=== PATIENT | female | born 1930 | race Caucasian/White ===

== ENCOUNTER 2018-04-20 14:11 | Emergency (ER) | payer MEDICARE ==
--- NOTE | 2018-04-20 14:24 | Emergency Department Report ---
Blank Doc - Documentation Documentation: This is a 88-year-old female that presents with popping sensation of jaw. Mecca callaway stated that patient yawned and felt a pop and now has a jaw deformity. This initial assessment/diagnostic orders/clinical plan/treatment(s) is/are subject to change based on patient's health status, clinical progression and re- assessment by fellow clinical providers in the ED. Further treatment and workup at subsequent clinical providers discretion. Patient/guardians urged not to elope from the ED as their condition may be serious if not clinically assessed and managed. Initial orders include: 1- Patient sent to [facility] for further evaluation and treatment
--- NOTE | 2018-04-20 14:56 | Cat Scan Report ---
CT scan of mandible: History: Mandibular pain and deformity. Findings: No fracture is identified. The right mandibular condyle is anteriorly dislocated. The left mandibular condyle is in normal position in temporomandibular joint. There is mucosal thickening noted in the right maxillary sinus. There is suspicion of a retention cyst. Impression: Anteriorly dislocated right mandibular condyle.
[2018-04-20] MEDS ORDERED: XYLOCAINE 1% 20 mL INFILTRATI ONE (15:22)
[2018-04-20] MEDS ORDERED: ATIVAN IV ONE ×2 (15:50→15:51)
[2018-04-20] MEDS ORDERED: DIPRIVAN 10 MG/ML IV ONE ×2 (17:36→18:04)
--- NOTE | 2018-04-20 17:47 | Emergency Department Report ---
ED General Adult HPI - General Chief complaint: Dental/Oral Stated complaint: JAW INJURY Time Seen by Provider: 04/20/18 14:22 Source: family Mode of arrival: Wheelchair Limitations: Language Barrier - History of Present Illness Initial comments: Patient presents to the emergency department with her family member for dislocation of her right jaw. 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 This happened 3 days ago and felt today was a perfect time to present to the emergency department. They deny injury. Location: mouth Severity scale (0 -10): 0 Consistency: constant Improves with: none Worsens with: none Associated Symptoms: denies other symptoms Treatments Prior to Arrival: none - Related Data Home Medications Medication Instructions Recorded Confirmed Last Taken Acarbose [Precose] 50 mg PO TID 05/01/15 05/01/15 1 Day Ago ~04/30/15 Fenofibrate [Tricor] 48 mg PO QDAY 05/01/15 05/01/15 1 Day Ago ~04/30/15 Ferrous Sulfate [Feosol] 325 mg PO QDAY 05/01/15 05/01/15 1 Day Ago ~04/30/15 Gabapentin [Neurontin] 100 mg PO Q8HR 05/01/15 05/01/15 1 Day Ago ~04/30/15 Lisinopril [Zestril TAB] 10 mg PO QDAY 05/01/15 05/01/15 1 Day Ago ~04/30/15 Meloxicam 15 mg PO QDAY 05/01/15 05/01/15 1 Day Ago ~04/30/15 amLODIPine [Norvasc] 5 mg PO DAILY 05/01/15 05/01/15 1 Day Ago ~04/30/15 clonazePAM 0.25 mg PO QHS 05/01/15 05/01/15 1 Day Ago ~04/30/15 glipiZIDE [Glucotrol] 10 mg PO QDAY 05/01/15 05/01/15 1 Day Ago ~04/30/15 Allergies Allergy/AdvReac Type Severity Reaction Status Date / Time Penicillins Allergy Unknown Verified 05/01/15 06:06 streptomycin Allergy Unknown Verified 05/01/15 06:06 ED Review of Systems ROS: Stated complaint: JAW INJURY Other details as noted in HPI Comment: All other systems reviewed and negative Constitutional: denies: chills, fever Eyes: denies: eye pain, eye discharge, vision change ENT: denies: ear pain, throat pain Respiratory: denies: cough, shortness of breath, wheezing Cardiovascular: denies: chest pain, palpitations Endocrine: no symptoms reported Gastrointestinal: denies: abdominal pain, nausea, diarrhea Genitourinary: denies: urgency, dysuria, discharge Musculoskeletal: denies: back pain, joint swelling, arthralgia Skin: denies: rash, lesions Neurological: denies: headache, weakness, paresthesias Psychiatric: denies: anxiety, depression Hematological/Lymphatic: denies: easy bleeding, easy bruising ED Past Medical Hx - Past Medical History Hx Hypertension: Yes Hx Diabetes: Yes Hx Arthritis: Yes Additional medical history: ANEMIA - Surgical History Past Surgical History?: No - Social History Smoking Status: Current Every Day Smoker Substance Use Type: None - Medications Home Medications: Home Medications Medication Instructions Recorded Confirmed Last Taken Type Acarbose [Precose] 50 mg PO TID 05/01/15 05/01/15 1 Day Ago History ~04/30/15 Fenofibrate [Tricor] 48 mg PO QDAY 05/01/15 05/01/15 1 Day Ago History ~04/30/15 Ferrous Sulfate [Feosol] 325 mg PO QDAY 05/01/15 05/01/15 1 Day Ago History ~04/30/15 Gabapentin [Neurontin] 100 mg PO Q8HR 05/01/15 05/01/15 1 Day Ago History ~04/30/15 Lisinopril [Zestril TAB] 10 mg PO QDAY 05/01/15 05/01/15 1 Day Ago History ~04/30/15 Meloxicam 15 mg PO QDAY 05/01/15 05/01/15 1 Day Ago History ~04/30/15 amLODIPine [Norvasc] 5 mg PO DAILY 05/01/15 05/01/15 1 Day Ago History ~04/30/15 clonazePAM 0.25 mg PO QHS 05/01/15 05/01/15 1 Day Ago History ~04/30/15 glipiZIDE [Glucotrol] 10 mg PO QDAY 05/01/15 05/01/15 1 Day Ago History ~04/30/15 ED Physical Exam - General Limitations: Language Barrier General appearance: alert, in no apparent distress - Head Head exam: Present: atraumatic, normocephalic - Eye Eye exam: Present: normal appearance - ENT ENT exam: Present: mucous membranes moist, other (obvious dislocation of the right mandible condyle) - Neck Neck exam: Present: normal inspection - Respiratory Respiratory exam: Present: normal lung sounds bilaterally. Absent: respiratory distress, wheezes, rales - Cardiovascular Cardiovascular Exam: Present: regular rate, normal rhythm. Absent: systolic murmur, diastolic murmur, rubs, gallop - GI/Abdominal GI/Abdominal exam: Present: soft, normal bowel sounds. Absent: distended, tenderness - Extremities Exam Extremities exam: Present: normal inspection - Back Exam Back exam: Present: normal inspection - Neurological Exam Neurological exam: Present: alert, oriented X3 - Psychiatric Psychiatric exam: Present: normal affect, normal mood - Skin Skin exam: Present: warm, dry, intact, normal color. Absent: rash ED Course Vital Signs 04/20/18 04/20/18 04/20/18 14:23 15:16 15:19 Temperature 98.9 F 97.5 F L Pulse Rate 73 66 Pulse Rate [ Intra-Procedure ] Pulse Rate [ Post-Procedure] Pulse Rate [Pre -Procedure] Respiratory 18 20 14 Rate Respiratory Rate [Intra- Procedure] Respiratory Rate [Post- Procedure] Respiratory Rate [Pre- Procedure] Blood Pressure 126/50 Blood Pressure [Intra- Procedure] Blood Pressure 135/61 [Left] Blood Pressure [Post-Procedure ] Blood Pressure [Pre-Procedure] O2 Sat by Pulse 97 Oximetry O2 Sat by Pulse Oximetry [ Intra-Procedure ] O2 Sat by Pulse Oximetry [Post -Procedure] O2 Sat by Pulse Oximetry [Pre- Procedure] 04/20/18 04/20/18 04/20/18 15:22 15:30 15:45 Temperature Pulse Rate 64 71 Pulse Rate [ Intra-Procedure ] Pulse Rate [ Post-Procedure] Pulse Rate [Pre -Procedure] Respiratory 14 21 19 Rate Respiratory Rate [Intra- Procedure] Respiratory Rate [Post- Procedure] Respiratory Rate [Pre- Procedure] Blood Pressure 125/54 171/65 Blood Pressure [Intra- Procedure] Blood Pressure [Left] Blood Pressure [Post-Procedure ] Blood Pressure [Pre-Procedure] O2 Sat by Pulse 97 Oximetry O2 Sat by Pulse Oximetry [ Intra-Procedure ] O2 Sat by Pulse Oximetry [Post -Procedure] O2 Sat by Pulse Oximetry [Pre- Procedure] 04/20/18 04/20/18 04/20/18 16:00 16:15 16:30 Temperature Pulse Rate 64 58 L 64 Pulse Rate [ Intra-Procedure ] Pulse Rate [ Post-Procedure] Pulse Rate [Pre -Procedure] Respiratory 16 18 14 Rate Respiratory Rate [Intra- Procedure] Respiratory Rate [Post- Procedure] Respiratory Rate [Pre- Procedure] Blood Pressure 171/65 114/46 114/46 Blood Pressure [Intra- Procedure] Blood Pressure [Left] Blood Pressure [Post-Procedure ] Blood Pressure [Pre-Procedure] O2 Sat by Pulse Oximetry O2 Sat by Pulse Oximetry [ Intra-Procedure ] O2 Sat by Pulse Oximetry [Post -Procedure] O2 Sat by Pulse Oximetry [Pre- Procedure] 04/20/18 04/20/18 04/20/18 16:45 17:00 17:15 Temperature Pulse Rate 59 L 53 L 57 L Pulse Rate [ Intra-Procedure ] Pulse Rate [ Post-Procedure] Pulse Rate [Pre -Procedure] Respiratory 18 17 17 Rate Respiratory Rate [Intra- Procedure] Respiratory Rate [Post- Procedure] Respiratory Rate [Pre- Procedure] Blood Pressure 112/50 103/43 117/50 Blood Pressure [Intra- Procedure] Blood Pressure [Left] Blood Pressure [Post-Procedure ] Blood Pressure [Pre-Procedure] O2 Sat by Pulse Oximetry O2 Sat by Pulse Oximetry [ Intra-Procedure ] O2 Sat by Pulse Oximetry [Post -Procedure] O2 Sat by Pulse Oximetry [Pre- Procedure] 04/20/18 04/20/18 04/20/18 17:30 17:46 18:01 Temperature Pulse Rate 53 L 59 L Pulse Rate [ Intra-Procedure ] Pulse Rate [ Post-Procedure] Pulse Rate [Pre 64 -Procedure] Respiratory 18 20 Rate Respiratory Rate [Intra- Procedure] Respiratory Rate [Post- Procedure] Respiratory 17 Rate [Pre- Procedure] Blood Pressure 111/46 Blood Pressure [Intra- Procedure] Blood Pressure [Left] Blood Pressure [Post-Procedure ] Blood Pressure 139/51 [Pre-Procedure] O2 Sat by Pulse 100 Oximetry O2 Sat by Pulse Oximetry [ Intra-Procedure ] O2 Sat by Pulse Oximetry [Post -Procedure] O2 Sat by Pulse 100 Oximetry [Pre- Procedure] 04/20/18 04/20/18 04/20/18 18:06 18:09 18:15 Temperature Pulse Rate Pulse Rate [ 68 Intra-Procedure ] Pulse Rate [ 55 L 50 L Post-Procedure] Pulse Rate [Pre -Procedure] Respiratory Rate Respiratory 10 L Rate [Intra- Procedure] Respiratory 10 L 19 Rate [Post- Procedure] Respiratory Rate [Pre- Procedure] Blood Pressure Blood Pressure 139/58 [Intra- Procedure] Blood Pressure [Left] Blood Pressure 109/45 100/42 [Post-Procedure ] Blood Pressure [Pre-Procedure] O2 Sat by Pulse Oximetry O2 Sat by Pulse 100 Oximetry [ Intra-Procedure ] O2 Sat by Pulse 100 100 Oximetry [Post -Procedure] O2 Sat by Pulse Oximetry [Pre- Procedure] 04/20/18 04/20/18 04/20/18 18:25 18:35 19:32 Temperature Pulse Rate Pulse Rate [ Intra-Procedure ] Pulse Rate [ 51 L 59 L Post-Procedure] Pulse Rate [Pre 65 -Procedure] Respiratory Rate Respiratory Rate [Intra- Procedure] Respiratory 16 14 Rate [Post- Procedure] Respiratory 14 Rate [Pre- Procedure] Blood Pressure Blood Pressure [Intra- Procedure] Blood Pressure [Left] Blood Pressure 130/56 133/52 [Post-Procedure ] Blood Pressure 154/70 [Pre-Procedure] O2 Sat by Pulse Oximetry O2 Sat by Pulse Oximetry [ Intra-Procedure ] O2 Sat by Pulse 98 Oximetry [Post -Procedure] O2 Sat by Pulse 100 Oximetry [Pre- Procedure] 04/20/18 04/20/18 04/20/18 19:34 19:39 19:45 Temperature Pulse Rate Pulse Rate [ 63 60 Intra-Procedure ] Pulse Rate [ 58 L Post-Procedure] Pulse Rate [Pre -Procedure] Respiratory Rate Respiratory 16 14 Rate [Intra- Procedure] Respiratory 15 Rate [Post- Procedure] Respiratory Rate [Pre- Procedure] Blood Pressure Blood Pressure 133/56 143/51 [Intra- Procedure] Blood Pressure [Left] Blood Pressure 158/58 [Post-Procedure ] Blood Pressure [Pre-Procedure] O2 Sat by Pulse Oximetry O2 Sat by Pulse 100 100 Oximetry [ Intra-Procedure ] O2 Sat by Pulse 100 Oximetry [Post -Procedure] O2 Sat by Pulse Oximetry [Pre- Procedure] - Jaw Reduction Consent Obtained: written consent Time Out Performed: Yes (1800) Pre-Treatment Medications Used: none Technique used: other (Dauer posterior traction) Reduction successful: Yes Patient Tolerated Procedure: well, no complications Complications: none Additional Comments: Repeat reduction and had to be done due to the TMJ dislocating again [place] was done at 7:32 PM 4 mL of propofol given Reduction done without complications Mall I ASA II - Moderate Sedation Indications: fracture/dislocation redu ASA Class: II Mallampati Airway Score: 1 Time of Last PO Intake: 11:00 Preparation: cardiac catheterization technologist applied, pulse oximeter, capnometry used, supplemental O2 applied, suction/airway equipment at bedside, IV secured IV Propofol Dose (mgs): 40 Complications: none Patient Tolerated Procedure: well ED Medical Decision Making - Medical Decision Making Attempts made to reduce the dislocation to no avail Critical care attestation.: If time is entered above; I have spent that time in minutes in the direct care of this critically ill patient, excluding procedure time. 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
[2018-04-20] MEDS ORDERED: NACL 0.9% 1000 ML 1,000 ML ONE (17:54)
[2018-04-20] MEDS ORDERED: NACL 0.9% 1000 ML 1,000 ML IV ONE (18:04)
[2018-04-20 20:42] VITALS: BP 151/60
== END 2018-04-20 20:50 | disposition home or self-care (01) ==
LOC: ED 14:11
DX: S03.01XA Dislocation of jaw, right side, initial encounter (principal); I10 Essential (primary) hypertension; E11.9 Type 2 diabetes mellitus without complications; M19.90 Unspecified osteoarthritis, unspecified site; F17.200 Nicotine dependence, unspecified, uncomplicated; Z88.0 Allergy status to penicillin; Z88.1 Allergy status to other antibiotic agents; X58.XXXA Exposure to other specified factors, initial encounter; Y93.89 Activity, other specified; Y92.89 Other specified places as the place of occurrence of the external cause; Y99.8 Other external cause status
CPT/HCPCS: 21480; 70486; 82962; 96374; 99284; J2060; J2704; J7030